=== PATIENT | female | born 1995 | race Caucasian/White ===

== ENCOUNTER 2017-06-30 12:51 | Emergency (ER) | payer MEDICAID ==
[~2017-06-30] VITALS: Ht 157.5 cm; Wt 76.2 kg
[~2017-06-30 12:51] MED LIST: IBUP-1222 PO; Iron PO; OXYC-302 PO; PREN1TAB56 PO
[2017-06-30 13:04] VITALS: BP 101/67
[2017-06-30 16:09] LABS: HEMATOCRIT 41.5 % (34.6-47.8); HEMOGLOBIN 13.9 g/dL (11.7-16.4); WHITE BLOOD COUNT 7.3 x10^3/uL (3.4-10)
[2017-06-30 16:24] LABS: BLOOD UREA NITROGEN 11 mg/dL (7-18)
== END 2017-06-30 19:02 | disposition home or self-care (01) ==
LOC: ED 18:15
DX: O03.38 Urinary tract infection following incomplete spontaneous abortion (principal); O03.4 Incomplete spontaneous abortion without complication; Z3A.08 8 weeks gestation of pregnancy
CPT/HCPCS: 36415; 76801; 80048; 81001; 82040; 84702; 85025; 86850; 86900; 87086; 99285

== ENCOUNTER → 2018-07-31 | Outpatient (CLI) | payer OTHER, MEDICAID ==
[~2018-07-31] MED LIST changes: +MULT-672 PO
[2018-07-31 11:42] LABS: BASOPHILS # (AUTO) 0.03 x10^3/uL (0-0.1); BASOPHILS % (AUTO) 1 % (0-1); EOSINOPHILS % (AUTO) 2 % (1-7); LYMPHOCYTES # (AUTO) 1.66 x10^3/uL (1-3.4); LYMPHOCYTES % (AUTO) 30 % (22-44); MD NO; MEAN CORPUSCULAR HEMOGLOBIN 30.6 pg (27.0-34.8); MEAN CORPUSCULAR HGB CONC 34.3 g/dL (32.4-35.8); MEAN CORPUSCULAR VOLUME 89.4 fL (80-100); MEAN PLATELET VOLUME 8.6 fL (7.4-10.4); MONOCYTES # (AUTO) 0.35 x10^3/uL (0.2-0.8); MONOCYTES % (AUTO) 6 % (2-9); NEUTROPHILS # (AUTO) 3.37 x10^3/uL (1.8-6.8); NEUTROPHILS % (AUTO) 61 % (42-75); PLATELET COUNT 272 x10^3/uL (130-400); RED BLOOD COUNT 4.61 x10^6/uL (3.82-5.3); RED CELL DISTRIBUTION WIDTH 12.8 % (9.6-15.2)
[2018-07-31 11:44] LABS: MICROSCOPIC AUTO
[2018-07-31 11:49] LABS: ALBUMIN 4.3 g/dL (3.4-5.0); ANION GAP 3 mmol/L (5-15); CALCIUM 8.7 mg/dL (8.5-10.1); CHLORIDE 107 mmol/L (98-107)
[2018-07-31 11:53] LABS: ALANINE AMINOTRANSFERASE 18 U/L (12-78); ALKALINE PHOSPHATASE 49 U/L (45-117); BILIRUBIN,TOTAL 0.4 mg/dL (0.2-1.0); CREATININE 0.61 mg/dL (0.55-1.02); TOTAL PROTEIN 7.9 g/dL (6.4-8.2)
== END | disposition home or self-care (01) ==
LOC: STAR 10:35
PROVIDERS: ATTEND Urology
DX: Z01.818 Encounter for other preprocedural examination (principal); N36.1 Urethral diverticulum
CPT/HCPCS: 36415; 80053; 81001; 85025; 87086

== ENCOUNTER 2018-08-07 09:26 | Day surgery (SDC) | payer OTHER, MEDICAID ==
[~2018-08-07] VITALS: Ht 154.9 cm; Wt 74.0 kg
[~2018-08-07 09:26] MED LIST changes: +BUPIVACAINE/PF-EPI 0.25% 1:200K ONE; +THROMBIN 5,000 UNIT VIAL TP ONE
[2018-08-07] MEDS ORDERED: LACTATED RINGERS 1,000 ML IV SCH (10:07)
[2018-08-07 10:14] VITALS: BP 107/74
[2018-08-07 10:38] LABS: HCG UR SG 1.018 (1.003-1.030)
[2018-08-07] MEDS ORDERED: PROPOFOL 10 MG/ML, 20ML ONE (11:40)
[2018-08-07] MEDS ORDERED: CEFAZOLIN 1,000 MG ONE (11:40)
[2018-08-07] MEDS ORDERED: ONDANSETRON 2MG/ML, 2ML ONE (11:40)
[2018-08-07] MEDS ORDERED: DEXAMETHASONE 4 MG/ML, 1ML ONE (11:40)
[2018-08-07] MEDS ORDERED: METOCLOPRAMIDE 5 MG/ML, 2ML ONE (11:40)
[2018-08-07] MEDS ORDERED: FENTANYL PF 100 MCG/2ML ONE (11:42)
[2018-08-07] MEDS ORDERED: MIDAZOLAM 1 MG/ML, 2ML ONE (11:42)
[2018-08-07] MEDS ORDERED: MEPERIDINE/PF 50 MG/ML ONE (13:13)
[2018-08-07] MEDS ORDERED: MEPERIDINE/PF 25MG/0.5ML IVPush PRN ×2 (14:00→14:30)
[2018-08-07] MEDS ORDERED: MIDAZOLAM 1 MG/ML, 2ML IV PRN (14:30)
[2018-08-07] MEDS ORDERED: OXYcodone 5 MG/5 ML ORAL.SOL UDC PO PRN (14:30)
[2018-08-07] MEDS ORDERED: HYDROmorphone 1 MG/ML, 1ML IV PRN (14:30)
[2018-08-07] MEDS ORDERED: ONDANSETRON 2MG/ML, 2ML IVPush PRN (14:30)
[2018-08-07] MEDS ORDERED: FENTANYL PF 100 MCG/2ML IV PRN (14:30)
[2018-08-07] MEDS ORDERED: LABETALOL 5MG/ML, 20ML IV PRN (14:30)
== END 2018-08-07 15:25 | disposition home or self-care (01) ==
LOC: OUT 09:26
PROVIDERS: ATTEND Urology
DX: N36.1 Urethral diverticulum (principal); N36.8 Other specified disorders of urethra; Z88.8 Allergy status to other drugs, medicaments and biological substances
CPT/HCPCS: 53230; 81025; 88305; J0690; J1100; J2175; J2250; J2405; J2704; J2765; J3010; J7120

== ENCOUNTER 2019-08-23 15:52 | Emergency (ER) | payer MEDICAID, OTHER ==
[~2019-08-23] VITALS: Ht 154.9 cm; Wt 86.0 kg
[~2019-08-23 15:52] MED LIST changes: -BUPIVACAINE/PF-EPI 0.25% 1:200K ONE; -THROMBIN 5,000 UNIT VIAL TP ONE
[2019-08-23 16:55] LABS: BASOPHILS # (AUTO) 0.02 x10^3/uL (0-0.1); BASOPHILS % (AUTO) 0 % (0-1); EOSINOPHILS % (AUTO) 1 % (1-7); LYMPHOCYTES # (AUTO) 1.77 x10^3/uL (1-3.4); LYMPHOCYTES % (AUTO) 24 % (22-44); MD NO; MEAN CORPUSCULAR HEMOGLOBIN 30.2 pg (27.0-34.8); MEAN CORPUSCULAR HGB CONC 33.2 g/dL (32.4-35.8); MEAN CORPUSCULAR VOLUME 90.9 fL (80-100); MEAN PLATELET VOLUME 8.4 fL (7.4-10.4); MONOCYTES # (AUTO) 0.54 x10^3/uL (0.2-0.8); MONOCYTES % (AUTO) 7 % (2-9); NEUTROPHILS # (AUTO) 4.87 x10^3/uL (1.8-6.8); NEUTROPHILS % (AUTO) 67 % (42-75); PLATELET COUNT 291 x10^3/uL (130-400); RED BLOOD COUNT 4.39 x10^6/uL (3.82-5.3); RED CELL DISTRIBUTION WIDTH 12.5 % (9.6-15.2)
[2019-08-23 17:02] LABS: ALBUMIN 3.8 g/dL (3.4-5.0); ANION GAP 5 mmol/L (5-15); CALCIUM 9.1 mg/dL (8.5-10.1); CHLORIDE 107 mmol/L (98-107); CREATININE 0.61 mg/dL (0.55-1.02)
[2019-08-23 17:06] LABS: T4 (THYROXINE) 10.5 mcg/dL (4.8-13.9)
[2019-08-23 17:41] VITALS: BP 122/64
== END 2019-08-23 17:50 | disposition home or self-care (01) ==
LOC: ED 17:15
DX: R00.2 Palpitations (principal); F41.1 Generalized anxiety disorder
CPT/HCPCS: 36415; 71045; 80048; 82040; 83735; 84436; 84443; 84703; 85025; 93005; 99284